=== PATIENT | female | born 1945 | race Caucasian/White ===

== ENCOUNTER 2020-04-08 09:37 | Observation (INO) ==
[2020-04-08] MEDS ORDERED: KETOROLAC TROMETHAMINE 15 MG/ML VIAL IV ONE (10:04)
[2020-04-08] MEDS ORDERED: SODIUM CHLORIDE 0.9% 1000ML 1,000 ML IV ONE (10:04)
--- NOTE | 2020-04-08 10:08 | Emergency Department Note ---
Impression & Plan Hydronephrosis, Renal colic on right side ED Provider Note NAME: LISA NEGRON AGE: 76 SEX: F : 04/29/1943 ARRIVES VIA: Walk-In INFORMANT: Patient, ED PROVIDER(S): Phillip Bautista DO CHIEF COMPLAINT: Right flank HPI: Patient is a 76-year-old female who presents to the ER for right flank pain. This has been present for the past several months. She notes that recently over the past week it has been worsening. She saw urology in [place] after presenting to the ER and was found to have a 7 mm stone in early March. Lithotripsy was performed but unsuccessful. She was set to follow back up with Dr. Palomino but has since followed up and scheduled appointment with Dr. Mahmood. She admits to nausea but no vomiting. No dysuria urgency or frequency. No fevers. She is been taking Toradol with minimal improvement. Notes pain is currently an 8 out of 10. ROS: See above HPI for pertinent positives & negatives. A total of 10 systems reviewed and were otherwise negative. PAST MEDICAL HISTORY:See Below PAST SURGICAL HISTORY:See Below FAMILY HISTORY:See Below SOCIAL HISTORY:See Below HOME MEDICATIONS:See Below ALLERGIES:See Below VITALS:See Below PHYSICAL EXAMINATION: GENERAL: Sitting up in bed, alert, well appearing, well nourished, no distress, non-toxic EYE EXAM: normal conjunctiva. OROPHARYNX: no exudate, no erythema, lips, buccal mucosa, and tongue normal and mucous membranes are moist NECK: supple, no nuchal rigidity, no adenopathy, non-tender LUNGS: Clear to auscultation. Normal chest wall mechanics HEART: no murmurs, S1 normal and S2 normal ABDOMEN: abdomen soft, non-tender, normo-active bowel sounds, no masses, no rebound or guarding. BACK: Back is symmetrical on inspection and there is no deformity, no midline tenderness, no CVA tenderness. SKIN: no rashes and no bruising UPPER EXTREMITIES: upper extremities are grossly normal. LOWER EXTREMITIES: No pitting edema. NEURO EXAM: Normal sensorium, cranial nerves II-XII grossly intact, normal speech, no gross weakness of arms, no gross weakness of legs. MEDICAL DECISION MAKING: Patient is a 74-year-old female who presents the ER for right flank pain. IV was established blood work is obtained. Labs show no significant leukocytosis or anemia. BMP with LFTs bilirubin and lipase is unremarkable. UA with hematuria. No signs of infection. CT abdomen pelvis confirms 3 stones in the right mid ureter with hydronephrosis. She is given a dose of Toradol and was fairly comfortable. With the multiple stones I discussed with urology. They recommended admission and observation and possibly going to the OR. Patient was updated bedside and was comfortable. Discussed with Ally from urology and Dr. Gonzales Barrera from admitting hospitalist. Triage Nursing notes reviewed. Prior medical records reviewed Vital Signs: reviewed and remarkable for HTN Differential diagnosis: Differential diagnoses includes but is not limited to gastritis, peptic ulcer disease, GERD, gallbladder disease, pancreatitis, small bowel obstruction, acute coronary syndrome, pericarditis, ischemic bowel, irritable bowel disease, irritable bowel syndrome, appendicitis, diverticulitis, malignancy, hernia, urinary tract infection, torsion, [/ectopic (if female)], perforation, trauma, infectious. ER treatment provided: See below Diagnostics interpreted by me: ECG: none Cardiac Monitoring: An order was placed for continuous cardiac monitoring. The monitor shows a rate of 80 with sinus rhythm. Laboratory studies: As stated above and show below. Imaging studies: CT abdomen pelvis shows 4 stones in the right ureter with hydronephrosis Consultation(s): Discussed with Tita from urology who recommended admission and they will further evaluate the patient Discussed with Dr. Gonzales Barrera who will evaluate the patient for further work-up ED COURSE: Procedures: none Critical Care: None Past Med/Surg History Medical History Hyperlipidemia Hypertension Type 2 diabetes mellitus Vitamin D deficiency Social History Smoking Status: Never smoker Hx Alcohol Use: Yes Alcohol type: beer Hx Substance Use: No Preferred Language: Yemeni Communication Ability: Effective Beliefs That Will Affect Care: Bahai Bahai Beliefs: oriental orthodox Current Living Situation: Spouse Other Information That Helps Us Care for You: No Feels Safe at Home: Yes Safety Concerns: Feels Safe At This Time Allergies Allergies Allergy/AdvReac Type Severity Reaction Status Date / Time No Known Allergies Allergy Unverified 04/08/20 11:55 Home Meds Home Medications Medication Instructions Recorded Confirmed albuterol sulfate [Ventolin HFA] 2 puff INHALATION Q6H PRN 04/08/20 04/08/20 atorvastatin [Lipitor] 20 mg PO [id number]/08/20 04/08/20 cholecalciferol (vitamin D3) 125 mcg PO HS 04/08/20 04/08/20 [Vitamin D3] losartan [Cozaar] 100 mg PO [id number]/08/20 04/08/20 metformin 1,000 mg PO BID 04/08/20 04/08/20 potassium chloride 20 meq PO 04/08/20 04/08/20 Results & Data (ED) Vital Signs Vital Signs - 24 hr 04/08/20 09:46 04/08/20 10:45 04/08/20 11:41 Temperature 37.0 C Temperature Source Oral Pulse Rate 76 70 Pulse Rate [Left] 67 Pulse Rhythm Regular Pulse Strength Normal Respiratory Rate 20 16 Respiratory Effort / Characteristics Non-Labored Non-Labored Spontaneous Respiratory Depth Normal Normal Respiratory Pattern Regular Blood Pressure 165/84 H Blood Pressure [Left Arm] 142/69 H Blood Pressure Mean 111 Blood Pressure Mean [Left Arm] 93 Blood Pressure Position Sitting Blood Pressure Position [Left Arm] Lying Pulse Oximetry 96 95 97 Oxygen Delivery Method Room Air Room Air Room Air Sepsis Recent Fever Within 48 Hours No Sepsis New/Unexplained Change in Mental Status No Sepsis Action Taken by Nursing No Action Required 04/08/20 12:22 04/08/20 12:32 Temperature Temperature Source Pulse Rate Pulse Rate [Left] 68 68 Pulse Rhythm Pulse Strength Respiratory Rate 16 18 Respiratory Effort / Characteristics Non-Labored Spontaneous Respiratory Depth Normal Respiratory Pattern Blood Pressure Blood Pressure [Left Arm] 140/69 Blood Pressure Mean Blood Pressure Mean [Left Arm] 92 Blood Pressure Position Blood Pressure Position [Left Arm] Lying Pulse Oximetry 98 98 Oxygen Delivery Method Room Air Room Air Sepsis Recent Fever Within 48 Hours Sepsis New/Unexplained Change in Mental Status Sepsis Action Taken by Nursing Laboratory Data Result diagrams: 04/08/20 10:19 04/08/20 10:19 Lab Results 04/08/20 04/08/20 04/08/20 Range/Units 10:19 10:19 11:20 WBC 9.73 (4.8-10.8) K/uL RBC 4.59 (4.2-5.4) M/uL Hgb 13.4 (12.0-16.0) g/dL Hct 40.3 (37-47) % MCV 87.8 (80-100) fL MCH 29.2 (25-34) pg MCHC 33.3 (32-36) g/dL RDW Std Deviation 41.0 (36.4-46.3) fL RDW Coeff of Kev 12.8 (11.5-14.5) % Plt Count 342 (130-400) K/uL MPV 8.8 (7.4-10.4) fL Immature Gran % (Auto) 0.1 % Neut % (Auto) 69.6 % Lymph % (Auto) 20.8 % [place] % (Auto) 7.7 % Eos % (Auto) 1.6 % Baso % (Auto) 0.2 % Neut # (Auto) 6.77 H (1.4-6.5) K/uL Lymph # (Auto) 2.02 (1.2-3.4) K/uL [place] # (Auto) 0.75 H (0.11-0.59) K/uL Eos # (Auto) 0.16 (0-0.5) K/uL Baso # (Auto) 0.02 (0-0.2) K/uL Immature Gran # (Auto) 0.01 (0.00-0.02) K/uL Sodium 141 (136-145) mmol/L Potassium 4.1 (3.5-5.1) mmol/L Chloride 106 (98-107) mmol/L Carbon Dioxide 26 (21-32) mmol/L Anion Gap 8.0 (3-11) BUN 12 (7-18) mg/dl Creatinine 1.06 (0.6-1.2) mg/dl Est Cr Clr Drug Dosing 43.0 ml/min Est GFR ( Amer) 60.8 Est GFR (Non-Af Amer) 52.4 BUN/Creatinine Ratio 11.2 (10-20) Glucose 123 H (70-99) mg/dl Calcium 9.4 (8.5-10.1) mg/dl Total Bilirubin 0.5 (0.2-1) mg/dl AST 14 L (15-37) U/L ALT 19 (12-78) U/L Alkaline Phosphatase 89 (45-117) U/L Total Protein 7.0 (6.4-8.2) gm/dl Albumin 3.7 (3.4-5.0) gm/dl Globulin 3.3 (2.5-4.0) gm/dl Albumin/Globulin Ratio 1.1 (0.9-2) Lipase 131 (73-393) U/L Urine Color Yellow Urine Appearance Clear (Clear) Urine pH 5.0 (4.5-7.5) Ur Specific [place] 1.021 (1.000-1.030) Urine Protein Negative (Negative) Urine Glucose (UA) Negative (Negative) Urine Ketones Negative (Negative) Urine Blood 1+ H (Negative) Urine Nitrite Negative (Negative) Urine Bilirubin Negative (Negative) Urine Urobilinogen Negative (Negative) Ur Leukocyte Esterase Negative (Negative) Urine WBC (Auto) 1-5 (0-5) /hpf Urine RBC (Auto) 5-10 H (0-4) /hpf U Hyaline Cast (Auto) 1-5 (0-5) /lpf U Epithel Cells (Auto) 10-20 H (0-5) /lpf Urine Bacteria (Auto) Negative (Negative) Administered Medications Lactated Ringer's (Lr) 1,000 mls @ 150 mls/hr IV .Q6H40M SHERRIE Stop: 05/08/20 14:30 Last Admin: 04/08/20 14:40 Dose: 150 mls/hr Documented by: [id number] Discontinued Medications Sodium Chloride (Nss 1000ml) 1,000 mls @ 999 mls/hr IV .Q1H1M ONE Stop: 04/08/20 11:04 Last Infusion: 04/08/20 11:24 Dose: 0 mls/hr Documented by: [id number] Admin: 04/08/20 10:22 Dose: 999 mls/hr Documented by: [id number] Ketorolac Tromethamine (Ketorolac Tromethamine 15 Mg/Ml Vial) 15 mg IV NOW ONE Stop: 04/08/20 10:05 Last Admin: 04/08/20 10:23 Dose: 15 mg Documented by: [id number] Ondansetron HCl (Ondansetron Inj 2 Mg/Ml 2 Ml Vial) 4 mg IV NOW STA Stop: 04/08/20 10:26 Last Admin: 04/08/20 10:33 Dose: 4 mg Documented by: [id number] Discharge Plan Visit Data Chief Complaint: Kidney Stone Stated Complaint: KIDNEY STONE DOC REG ED Provider: Phillip Bautista Discharge Problem: Hydronephrosis, Renal colic on right side Patient Disposition: Admitted As Inpatient Discharge Instructions Interventions: ED Discharge Assessment Last Done: 04/08/20 13:56 Discharge Problem: Hydronephrosis Qualifiers: Hydronephrosis type: unspecified Qualified Code(s): N13.30 - Unspecified hydronephrosis
[2020-04-08] MEDS ORDERED: ONDANSETRON INJ 2 MG/ML 2 ML VIAL IV STA (10:25)
[2020-04-08 10:33] LABS: Basophils # (auto) 0.02 K/uL (0-0.2); Basophils % (auto) 0.2 %; Eosinophils # (auto) 0.16 K/uL (0-0.5); Eosinophils % (auto) 1.6 %; Hematocrit (blood only) 40.3 % (37-47); Hemoglobin 13.4 g/dL (12.0-16.0); Immature Granulocytes # (auto) 0.01 K/uL (0.00-0.02); Immature Granulocytes % (auto) 0.1 %; Lymphocytes # (auto) 2.02 K/uL (1.2-3.4); Lymphocytes % (auto) 20.8 %; Mean Corpuscular Hemoglobin 29.2 pg (25-34); Mean Corpuscular Hgb Conc 33.3 g/dL (32-36); Mean Corpuscular Volume 87.8 fL (80-100); Mean Platelet Volume 8.8 fL (7.4-10.4); Monocytes # (auto) 0.75 K/uL (0.11-0.59); Monocytes % (auto) 7.7 %; Neutrophils # (auto) 6.77 K/uL (1.4-6.5); Neutrophils % (auto) 69.6 %; Platelet Count 342 K/uL (130-400); RDW Coefficient of Variation 12.8 % (11.5-14.5); Red Blood Count 4.59 M/uL (4.2-5.4); White Blood Count 9.73 K/uL (4.8-10.8)
[2020-04-08 10:52] LABS: Albumin Level 3.7 gm/dl (3.4-5.0); BUN Creatinine Ratio 11.2 (10-20); Calcium 9.4 mg/dl (8.5-10.1); Est GFR (African American) 60.8; Est GFR (Non-African American) 52.4; Potassium 4.1 mmol/L (3.5-5.1)
[2020-04-08 10:58] LABS: Albumin Globulin Ratio 1.1 (0.9-2); Bilirubin,Total 0.5 mg/dl (0.2-1); Globulin 3.3 gm/dl (2.5-4.0)
--- NOTE | 2020-04-08 11:25 | CT Scan Report ---
ABDOMEN AND PELVIS CT WITHOUT CONTRAST CT DOSE: 671.00 mGy.cm HISTORY: r flank pain TECHNIQUE: Multiaxial CT images of the abdomen and pelvis were performed without contrast. A dose lo wering technique was utilized adhering to the principles of ALARA. COMPARISON STUDY: None. FINDINGS: A punctate calcified granuloma within the left lung base. Small bibasilar linear densities consistent with subsegmental atelectasis. No pneumoperitoneum. No pneumatosis. No fractures within th e visualized osseous structures. Cholecystectomy. The unenhanced liver, spleen, adrenal glands, and p ancreas are within normal limits. No retroperitoneal lymphadenopathy. Moderate calcified plaque withi n the normal caliber abdominal aorta. The bladder, uterus, bilateral adnexa are within normal limits. Suboptimal evaluation for bowel pathology due to the lack of intravenous and oral contrast. However, there is no definite bowel wall thickening or obstruction. Normal appendix. There are few punctate l eft renal calculi. No definite right renal calculi. Moderate right hydroureteronephrosis secondary to multiple obstructing stones within the mid right ureter. There are total of 4 adjacent stones measur ing a total length of 2.4 cm at the mid right ureter. Dominant stone measures 6 mm. IMPRESSION: 1. There are 4 adjacent obstructing stones within the mid right ureter resulting in moderate right hy droureteronephrosis. 2. Left-sided nephrolithiasis. 3. Colonic diverticulosis. No evidence for diverticulitis. 4. No definite bowel wall thickening or obstruction. ACT 112: Negative or not required by law. Electronically signed by: Larry Gramajo M.D. 04/08/2020 11:24 AM
[2020-04-08 11:32] LABS: Appearance Urine Clear (Clear); Bacteria Urine Automated Negative (Negative); Bilirubin Urine Negative (Negative); Blood Urine 1+ (Negative); Color Urine Yellow; Glucose Urine UA Negative (Negative); Ketones Urine Negative (Negative); Leukocyte Esterase Urine Negative (Negative); Nitrite Urine Negative (Negative); Protein Urine Negative (Negative); Specific Gravity Urine 1.021 (1.000-1.030); Urobilinogen Urine Negative (Negative)
--- NOTE | 2020-04-08 13:06 | History & Physical Report ---
Date of Service April 08, 2020 Assessment & Plan (1) Ureterolithiasis: Strain all urine Tamsulosin 0.4 mg at bedtime NPO with IV fluids pending urology consult Consult urology (2) Renal colic on right side: IV Dilaudid 0.5 IV as needed Ondansetron 4 mg q4H IV as needed for nausea or vomiting (3) Hydronephrosis: Consult urology for stent placement +/- stone management (4) Hyperlipidemia: Continue atorvastatin 20 mg p.o. Saturday (5) Hypertension: Monitor blood pressure prior to continuing losartan (6) Type 2 diabetes mellitus: Hold metformin 1 g p.o. twice daily during admission BSG ACHS with insulin for correction only (7) Vitamin D deficiency: Continue vitamin D 3 125 mcg p.o. at bedtime Admission and Anticipated Discharge Date Admission Date: 04/08/2020 History of Present Illness Chief Complaint: Renal colic pain Primary Care Provider: Emily Echevarria Charmaine Arboleda is a 74-year-old female who presents to the ER with renal colic pain on the right side. Her current issues started back on March 12 [facility] emergency room when she was diagnosed with a 7x5 mm stone in the distal right UPJ causing mild/moderate hydronephrosis proximally. She was reportedly discharged from the ER at that time. Followed up with urology (Dr Palomino) on March 15 for procedure on March 18. The patient reports planned stent and lithotripsy at that time however lithotripsy was unsuccessful and no stent was placed. She has been having problems contacting her urologist after this procedure and was unsure of the follow-up plan for this. Therefore she called in [facility] urology to arrange follow-up with a planned appointment on April 15 (not able to get an earlier appointment than this). Since the lithotripsy she has had mild intermittent small amounts of right flank pain. However 2 days ago at night this became much more severe. 10/10 at worst. She had 1 Toradol leftover which helped for a couple of hours. Eased up the following day but continued throbbing. Continue to get worse today and on advice of her decided to come to the emergency room. Severity 8/10 on arrival in emergency room now significantly eased with Toradol given. In the ER she underwent CT abdomen pelvis without contrast which showed 4 adjacent obstructing stones within the mid right ureter resulting in moderate right hydro-ureteronephrosis. Allergies Allergy/AdvReac Type Severity Reaction Status Date / Time No Known Allergies Allergy Unverified 04/08/20 11:55 Home Medications Home Medications Medication Instructions Recorded Confirmed Type albuterol sulfate [Ventolin HFA] 2 puff INHALATION Q6H PRN 04/08/20 04/08/20 History atorvastatin [Lipitor] 20 mg PO [id number]@209904/08/20 04/08/20 History cholecalciferol (vitamin D3) 125 mcg PO HS 04/08/20 04/08/20 History [Vitamin D3] losartan [Cozaar] 100 mg PO [id number]/08/20 04/08/20 History metformin 1,000 mg PO BID 04/08/20 04/08/20 History potassium chloride 20 meq PO HS 04/08/20 04/08/20 History ketorolac 10 mg PO Q8H PRN 5 Days #30 tab 04/09/20 Rx tamsulosin 0.4 mg PO HS #30 cap 04/09/20 Rx Past Med/Surg History Medical History (Updated 04/10/20 @ 00:03 by Robbie Chavez) Asthma Hyperlipidemia Hypertension Type 2 diabetes mellitus Vitamin D deficiency Surgical History (Updated 04/08/20 @ 19:55 by Jadiel Mahmood MD) H/O lithotripsy Family History (Updated 04/08/20 @ 19:55 by Jadiel Mahmood MD) Other Coronary heart disease Social History Smoking Status: Never smoker Hx Alcohol Use: Yes Alcohol type: beer Hx Substance Use: No Preferred Language: Lithuanian Communication Ability: Effective Beliefs That Will Affect Care: Scientologist Scientologist Beliefs: denominational Current Living Situation: Spouse Feels Safe at Home: Yes Review of Systems Review of Systems: All systems reviewed & are unremarkable except as noted in HPI & below Physical Exam Constitutional: WD/WN, vitals as above + obese Eyes: + anicteric sclerae; normal pupil size Respiratory: normal respiratory effort, lungs clear to auscultation Cardiovascular: RRR, no murmur, no edema Gastrointestinal (Abdomen): normal bowel sounds, soft, nontender, no hepatosplenomegaly Musculoskeletal: no cyanosis or clubbing, extremities motor strength 5/5 Skin: no rashes, warm and dry Neurologic: moves all extremities and awake; not confused Psychiatric: A+Ox3, euthymic affect Genitourinary: + CVA tenderness (right) Results & Data Results & Data ([facility]) Vital Signs (Past 12 Hours) Vital Signs Temp Pulse Pulse Resp BP BP Pulse Ox 04/08/20 12:32 68 18 140/69 98 04/08/20 12:22 68 16 98 04/08/20 11:41 67 16 142/69 H 97 04/08/20 10:45 70 95 04/08/20 09:46 37.0 C 76 20 165/84 H 96 Diagnostic Findings ABDOMEN AND PELVIS CT WITHOUT CONTRAST IMPRESSION: 1. There are 4 adjacent obstructing stones within the mid right ureter resulting in moderate right hydroureteronephrosis. 2. Left-sided nephrolithiasis. 3. Colonic diverticulosis. No evidence for diverticulitis. 4. No definite bowel wall thickening or obstruction. Code Status & VTE Plan Code Status Full VTE Prophylaxis Plan VTE Prophylaxis will be ordered: Yes Reason for no VTE drug order: Treatment not indicated PG Care Time/CCT Total # of Minutes Spent Total Time Spent with Patient: Total time spent is greater than 50% in coordination of care (as documented) at patient's floor/unit and/or counseling patient: Coding Level of Care Code 30695 OBS Care - Level 2 Diagnoses Ureterolithiasis N20.1 Renal colic on right side N23 Hydronephrosis N13.30 Hyperlipidemia E78.5 Hypertension I10 Type 2 diabetes mellitus E11.9 Vitamin D deficiency E55.9
[2020-04-08] MEDS ORDERED: DEXTROSE 50% 50 ML SYRINGE IV PRN (14:31)
[2020-04-08] MEDS ORDERED: GLUCOSE 40% GEL 15 GM TUBE PO PRN (14:31)
[2020-04-08] MEDS ORDERED: ACETAMINOPHEN 325 MG TAB PO PRN (14:31)
[2020-04-08] MEDS ORDERED: GLUCAGON FOR INJ 1 MG VIAL SQ PRN (14:31)
[2020-04-08] MEDS ORDERED: HYDROmorphone INJ 0.5 MG/0.5 ML SYR IV PRN (14:31)
[2020-04-08] MEDS ORDERED: CARBOHYDRATES FOR HYPOGLYCEMIA PO PRN (14:31)
[2020-04-08] MEDS ORDERED: ONDANSETRON INJ 2 MG/ML 2 ML VIAL IV PRN (14:31)
[2020-04-08] MEDS ORDERED: GLUCOSE 10 TABS/TUBE PO PRN (14:31)
[2020-04-08] MEDS: LACTATED RINGER'S 1,000 ML IV SCH ×2 (14:40→21:20)
[2020-04-08] MEDS ORDERED: Nursing to Pharmacy Communication SCH ×2 (15:00→16:00)
[2020-04-08] MEDS ORDERED: INSULIN ASPART 100 UNITS/ML 3 ML PEN SC SCH ×2 (16:30→18:00)
--- NOTE | 2020-04-08 16:30 | Anesthesiology Consultation ---
Date of Service April 08, 2020 Assessment & Plan (1) Encounter for pre-operative examination: (2) Asthma: History Surgery Operation Date: 04/09/20 08:15 Proposed Procedures p Cystoscopy, Right Ureteral Stent Placement - Jadiel Mahmood MD Height/Weight Height: 5 ft Weight: 73.8 kg Allergies Allergy/AdvReac Type Severity Reaction Status Date / Time No Known Allergies Allergy Unverified 04/08/20 11:55 Medications Home Medications Medication Instructions Recorded Confirmed Last Taken albuterol sulfate [Ventolin HFA] 2 puff INHALATION Q6H PRN 04/08/20 04/08/20 Unknown atorvastatin [Lipitor] 20 mg PO MOWEFR@209904/08/20 04/08/20 04/06/20 cholecalciferol (vitamin D3) 125 mcg PO HS 04/08/20 04/08/20 04/07/20 [Vitamin D3] losartan [Cozaar] 100 mg PO MOWEFR@209904/08/20 04/08/20 04/06/20 metformin 1,000 mg PO BID 04/08/20 04/08/20 04/07/20 potassium chloride 20 meq PO 04/08/20 04/08/20 04/07/20 Active Medications Generic Name Dose Route Start Last Admin Trade Name Freq PRN Reason Stop Dose Admin Acetaminophen 650 mg 04/08/20 14:31 04/09/20 03:33 Acetaminophen 325 Mg Tab PO 05/08/20 14:30 650 mg Q4H PRN Administration Pain or Fever Atorvastatin Calcium 20 mg 04/08/20 21:00 04/08/20 21:18 Atorvastatin 20 Mg Tab PO 05/08/20 20:59 Not Given [id number] [facility] Lactated Ringer's 1,000 mls @ 150 mls/hr 04/08/20 14:31 04/09/20 03:28 Lr IV 05/08/20 14:30 150 mls/hr .Q6H40M SHERRIE Administration Insulin Aspart 0 units 04/09/20 06:00 04/09/20 06:08 Insulin Aspart 100 Units/Ml 3 Ml Pen SC 05/09/20 05:59 Not Given Q6 SHERRIE Ketorolac Tromethamine 15 mg 04/08/20 15:57 04/08/20 19:59 Ketorolac Tromethamine 15 Mg/Ml Vial IV 04/13/20 15:56 15 mg Q6H PRN Administration Pain Potassium Chloride 20 meq 04/08/20 21:00 04/08/20 21:18 Potassium Chloride 20 Meq Tabcr PO 05/08/20 20:59 Not Given HS SHERRIE Vitamin D 5,000 units 04/08/20 21:00 04/08/20 21:18 Cholecalciferol 1,000 Units 25 Mcg Tab PO 05/08/20 20:59 Not Given HS SHERRIE Past Medical History Medical History (Updated 04/09/20 @ 08:21 by Ellie Keller MD) Asthma Hyperlipidemia Hypertension Type 2 diabetes mellitus Vitamin D deficiency Past Family History Family History (Updated 04/08/20 @ 19:55 by Jadiel Mahmood MD) Other Coronary heart disease Past Surgical History Surgical History (Updated 04/08/20 @ 19:55 by Jadiel Mahmood MD) H/O lithotripsy Social History Smoking Status: Never smoker Hx Alcohol Use: Yes Alcohol type: beer alcohol intake frequency: other Alcohol Intake Frequency Comment: "2 beers a year" Hx Substance Use: No substance use type: does not use Physical Exam Vital Signs Last Vital Signs Temp 36.7 C 04/09/20 07:32 Pulse 51 L 04/09/20 07:32 Resp 18 04/09/20 07:32 BP 120/72 04/09/20 07:32 Pulse Ox 97 04/09/20 07:32 Testing Laboratory Results 04/08/20 10:19 Urine Color Yellow 04/08/20 11:20 Urine Appearance Clear (Clear) 04/08/20 11:20 Urine pH 5.0 (4.5-7.5) 04/08/20 11:20 Ur Specific [place] 1.021 (1.000-1.030) 04/08/20 11:20 Urine Protein Negative (Negative) 04/08/20 11:20 Urine Glucose (UA) Negative (Negative) 04/08/20 11:20 Urine Ketones Negative (Negative) 04/08/20 11:20 Urine Nitrite Negative (Negative) 04/08/20 11:20 Ur Leukocyte Esterase Negative (Negative) 04/08/20 11:20 Urine WBC (Auto) 1-5 /hpf (0-5) 04/08/20 11:20 Urine RBC (Auto) 5-10 /hpf (0-4) H 04/08/20 11:20 U Hyaline Cast (Auto) 1-5 /lpf (0-5) 04/08/20 11:20 U Epithel Cells (Auto) 10-20 /lpf (0-5) H 04/08/20 11:20 Urine Bacteria (Auto) Negative (Negative) 04/08/20 11:20 04/09/20 04/08/20 06:00 20:47 POC Glucose 131 H 139 H
[2020-04-08] MEDS: INSULIN ASPART 100 UNITS/ML 3 ML PEN SC SCH ×2 (18:21→21:29)
--- NOTE | 2020-04-08 19:56 | Urology Consultation ---
Date of Consultation April 08, 2020 Assessment & Plan (1) Hydronephrosis: (2) Ureterolithiasis: Right ureteral calculi with obstruction and symptoms Discussed options I recommended a cystoscopy, right ureteral stent placement tomorrow We will cover with Cipro the time of surgery Consent is on the chart The patient was marked and agreeable with moving forward with the procedure N.p.o. after midnight History of Present Illness Attending Physician: Gonzales Barrera MD History of Present Illness 74-year-old female with a history of kidney stones who recently underwent surgery with another urologist[facility] Unfortunately, she had no relief of her pain and pain has been progressively increasing since that time She tried to contact that urologist on multiple occasions but was unsuccessful This ultimately led to an emergency room visit today secondary to severe pain and nausea CT upon arrival shows a series of stones along the right ureter with hydronephro sis and stranding She remains symptomatic this evening Afebrile, vital signs stable Family history of stones Prior history of ESWL, never a stent Allergies Allergy/AdvReac Type Severity Reaction Status Date / Time No Known Allergies Allergy Unverified 04/08/20 11:55 Home Medications Home Medications Medication Instructions Recorded Confirmed Type albuterol sulfate [Ventolin HFA] 2 puff INHALATION Q6H PRN 04/08/20 04/08/20 History atorvastatin [Lipitor] 20 mg PO [id number]/08/20 04/08/20 History cholecalciferol (vitamin D3) 125 mcg PO HS 04/08/20 04/08/20 History [Vitamin D3] losartan [Cozaar] 100 mg PO [id number]/08/20 04/08/20 History metformin 1,000 mg PO BID 04/08/20 04/08/20 History potassium chloride 20 meq PO HS 04/08/20 04/08/20 History Patient History Medical History (Updated 04/08/20 @ 16:30 by Ellie Keller MD) Hyperlipidemia Hypertension Type 2 diabetes mellitus Vitamin D deficiency Surgical History (Updated 04/08/20 @ 19:55 by Jadiel Mahmood MD) H/O lithotripsy Family History (Updated 04/08/20 @ 19:55 by Jadiel Mahmood MD) Other Coronary heart disease Social History Smoking Status: Never smoker Hx Alcohol Use: Yes Alcohol type: beer Hx Substance Use: No Preferred Language: Luxembourgish Communication Ability: Effective Beliefs That Will Affect Care: Nondenominational Nondenominational Beliefs: taoist Current Living Situation: Spouse Other Information That Helps Us Care for You: No Feels Safe at Home: Yes Safety Concerns: Feels Safe At This Time Review of Systems Constitutional: no fever, no chills and no fatigue Eyes: no worsening vision Ear, Nose, Mouth, Throat: no facial pain and no pain with swallowing Respiratory: no cough and no dyspnea Cardiovascular: no chest pain and no palpitations Gastrointestinal: no abdominal pain, no nausea and no vomiting Genitourinary: no dysuria, no difficulty urinating, no urinary frequency and no hematuria Musculoskeletal: no back pain Integumentary: no rash and no urticaria Neurologic: no gait abnormality and no unsteadiness Psychiatric: no behavioral changes and no depression Endocrine: no fatigue Physical Exam Constitutional: well developed and well nourished Neck: neck nontender Respiratory: normal respiratory effort; no respiratory distress and does not use accessory muscles Cardiovascular: Rate/Rhythm: regular rate Vessels: radial pulses present Extremities: no edema Gastrointestinal (Abdomen): Inspection/Auscultation: abdomen normal to inspection Percussion/Palpation: abdomen soft; abdomen nontender and no guarding Musculoskeletal: Head/Neck/Chest: normocephalic and head atraumatic E xtremities: extremities normal to inspection Skin: no rashes and no lesions Trauma: no evidence of skin trauma Neurologic: awake; not obtunded Speech / Cognition: normal speech Motor/Sensory: no tremor Psychiatric: Orientation: alert and oriented x 3 Lymphatic: no lymphadenopathy Results & Data ([facility]) Vital Signs (Past 12 Hours) Vital Signs Temp Pulse Pulse Resp BP BP Pulse Ox 04/08/20 15:42 36.6 C 90 18 130/68 95 04/08/20 13:56 63 18 170/81 H 99 04/08/20 12:32 68 18 140/69 98 04/08/20 12:22 68 16 98 04/08/20 11:41 67 16 142/69 H 97 04/08/20 10:45 70 95 04/08/20 09:46 37.0 C 76 20 165/84 H 96 PG Care Time/CCT Total # of Minutes Spent Total Time Spent with Patient: Total time spent is greater than 50% in coordination of care (as documented) at patient's floor/unit and/or counseling patient: Coding Level of Care Code 55954 Inpt Consult Level 4 Diagnoses Hydronephrosis N13.30 Hydronephrosis type: unspecified Ureterolithiasis N20.1 (1) Hydronephrosis Hydronephrosis type: unspecified Qualified Code(s): N13.30 - Unspecified hydronephrosis
[2020-04-08] MEDS: KETOROLAC TROMETHAMINE 15 MG/ML VIAL IV PRN (19:59)
[2020-04-08] MEDS ORDERED: POTASSIUM CHLORIDE 20 MEQ TABCR PO SCH (21:00)
[2020-04-08] MEDS ORDERED: ATORVASTATIN 20 MG TAB PO SCH (21:00)
[2020-04-08] MEDS ORDERED: CHOLECALCIFEROL 1,000 UNITS 25 MCG TAB PO SCH (21:00)
[2020-04-09] MEDS: LACTATED RINGER'S 1,000 ML IV SCH ×2 (03:28→12:39)
[2020-04-09] MEDS ORDERED: Nursing to Pharmacy Communication SCH (03:30)
[2020-04-09] MEDS ORDERED: CIPROFLOXACIN / D5W 400 MG/200 ML BAG IV SCH (06:00)
[2020-04-09] MEDS: INSULIN ASPART 100 UNITS/ML 3 ML PEN SC SCH ×2 (06:08→12:42)
--- NOTE | 2020-04-09 07:33 | Urology Progress Note ---
Date of Service April 09, 2020 Assessment & Plan (1) Ureterolithiasis: Plan for intervention today with cystoscopy, right ureteral stent placement Cipro perioperative Hope to be able to discharge her home after the procedure presuming she tolerates the stent well (2) Hydronephrosis: Admission and Anticipated Discharge Date Admission Date: April 08, 2020 Subjective No change overnight Tolerating her discomfort but still remains symptomatic from her right ureteral stones Review of Systems Review of Systems: All systems reviewed & are unremarkable except as noted in HPI & below Physical Exam Constitutional: well developed and well nourished Neck: neck nontender Respiratory: normal respiratory effort; no respiratory distress and does not use accessory muscles Cardiovascular: Rate/Rhythm: regular rate Vessels: radial pulses present Extremities: no edema Gastrointestinal (Abdomen): Inspection/Auscultation: abdomen normal to inspection Percussion/Palpation: abdomen soft; abdomen nontender and no guarding Musculoskeletal: Head/Neck/Chest: normocephalic and head atraumatic Extremities: extremities normal to inspection Skin: no rashes and no lesions Trauma: no evidence of skin trauma Neurologic: awake; not obtunded Speech / Cognition: normal speech Motor/Sensory: no tremor Psychiatric: Orientation: alert and oriented x 3 Lymphatic: no lymphadenopathy Results & Data ([facility]) Vital Signs (Past 12 Hours) Vital Signs Temp Pulse Resp BP Pulse Ox 04/09/20 06:11 36.5 C 56 L 16 120/68 96 04/08/20 23:15 36.7 C 67 16 122/81 96 PG Care Time/CCT Total # of Minutes Spent Total Time Spent with Patient: Total time spent is greater than 50% in coordination of care (as documented) at patient's floor/unit and/or counseling patient: Coding Level of Care Code 41403 Subseq Hosp Care Lvl 2 Diagnoses Ureterolithiasis N20.1 Hydronephrosis N13.30 Hydronephrosis type: unspecified (1) Hydronephrosis Hydronephrosis type: unspecified Qualified Code(s): N13.30 - Unspecified hydronephrosis
[2020-04-09] MEDS ORDERED: PROPOFOL IV EMULSION 10 MG/ML 20 ML VIAL IV ONE (08:17)
[2020-04-09] MEDS ORDERED: LIDOCAINE HCL 2% 2 ML VIAL/AMP(20MG/ML) INFIL ONE (08:17)
[2020-04-09] MEDS ORDERED: fentaNYL citrate 100 MCG/2 ML VIAL ONE (08:17)
[2020-04-09] MEDS ORDERED: MIDAZOLAM HCL 1 MG/ML 2ML VIAL ONE (08:18)
[2020-04-09] MEDS ORDERED: ATROPINE SULFATE 0.1 MG/ML 10ML SYR IV PRN (08:26)
[2020-04-09] MEDS ORDERED: HYDROmorphone INJ 1 MG/ML SYRINGE IV PRN (08:26)
[2020-04-09] MEDS ORDERED: fentaNYL citrate 100 MCG/2 ML VIAL IV PRN (08:26)
[2020-04-09] MEDS ORDERED: ONDANSETRON INJ 2 MG/ML 2 ML VIAL IV PRN (08:26)
[2020-04-09] MEDS ORDERED: ePHEDrine sulfate 50 MG/ML AMP IV PRN (08:26)
[2020-04-09 08:27] LABS: Calcium 8.9 mg/dl (8.5-10.1); Creatinine Clr Calc Pharmacy 48.5 ml/min; Est GFR (African American) 70.2; Est GFR (Non-African American) 60.6; Potassium 3.8 mmol/L (3.5-5.1)
--- NOTE | 2020-04-09 09:00 | Fluoroscopy Report ---
FL retrograde includes kub CLINICAL HISTORY: RT STENT PLACEMENT COMPARISON STUDY: Abdomen and pelvis CT 04/08/2020. FLUOROSCOPY TIME: 6 seconds. FINDINGS: 2 fluoroscopic spot images of the abdomen demonstrate placement of a right ureteral stent. Only the proximal portion of the stent is identified and appears in good position. IMPRESSION: Fluoroscopy provided for right ureteral stent placement. ACT 112: Negative or not required by law. Electronically signed by: Larry Gramajo M.D. 04/09/2020 8:59 AM
--- NOTE | 2020-04-09 09:04 | Operative Report ---
PG Post Operative Report Pre & Post Diagnosis Operation Date: 04/09/20 08:15 Pre-Op Diagnosis: URETEROLITHIASIS Post-Op Diagnosis: URETEROLITHIASIS I identified the patient and participated in the time-out.: Yes Procedure Operation Date: 04/09/20 08:15 Actual Procedures p Cystoscopy, Right Ureteral Stent Placement(Right) - Jadiel Mahmood MD Surgeon Luis Alberto Mahmood MD [employer] none Estimated Blood Loss 0 Findings Consistent with Post-Op Diagnosis Specimens none Description of Procedure The patient was identified in the preoperative holding area, appropriate informed consents were reviewed and completed and the patient was transferred to the operative suite. Upon arrival, appropriate antibiotics and anesthesia were administered and the patient was placed in dorsal lithotomy position and prepped and draped in sterile fashion. To begin the case to pass a 22 Bangladeshi cystoscope with 30 degree lens. I nspection revealed a healthy-appearing bladder. Ureteral orifices were in orthotopic position. There was no mucosal disease of the bladder. I cannulated the right ureteral orifice with a 5 Bangladeshi open-ended catheter and sensor wire. The wire advanced to the kidney without difficulty. Fluoroscopic evaluation appears to show an opacity along the level of the mid ureter consistent with the stones seen previously on imaging. Of note, however, she initially had 4 stones on imaging and I only appreciated one residual stone on fluoroscopy today. I then placed a 6 Bangladeshi by 24 cm double-J stent seeing a good curl in the kidney as well as the bladder. The bladder was decompressed and the case was concluded. There were no complications. She was reversed from anesthesia and taken to the recovery room in stable condition. I attest to the content of the Intraoperative Record and any orders documented therein. Any exceptions are noted below.
--- NOTE | 2020-04-09 09:27 | Anesthesiology Progress Note ---
Date of Service April 09, 2020 Anesthesia Post Procedure Vital Signs Vital Signs: Temp Pulse Pulse Pulse Resp BP BP 04/09/20 09:17 36.6 C 55 L 20 135/68 04/09/20 09:07 56 L 18 128/65 04/09/20 08:57 36.6 C 69 20 114/69 04/09/20 07:32 36.7 C 51 L 18 120/72 04/09/20 06:11 36.5 C 56 L 16 120/68 04/08/20 23:15 36.7 C 67 16 122/81 04/08/20 15:42 36.6 C 90 18 130/68 04/08/20 13:56 63 18 170/81 H 04/08/20 12:32 68 18 140/69 04/08/20 12:22 68 16 04/08/20 11:41 67 16 142/69 H 04/08/20 10:45 70 04/08/20 09:46 37.0 C 76 20 165/84 H Pulse Ox 04/09/20 09:17 94 04/09/20 09:07 97 04/09/20 08:57 98 04/09/20 07:32 97 04/09/20 06:11 96 04/08/20 23:15 96 04/08/20 15:42 95 04/08/20 13:56 99 04/08/20 12:32 98 04/08/20 12:22 98 04/08/20 11:41 97 04/08/20 10:45 95 04/08/20 09:46 96 Pain Intensity Abdomen: Pain Intensity: 3 Right Flank: Pain Intensity: 5 Transfer of Care Handoff Completed per policy Notes Mental Status: alert / awake / arousable and participated in evaluation Patient Amnestic to Procedure: Yes Nausea / Vomiting: adequately controlled Pain: adequately controlled Airway Patency, RR, SpO2: stable & adequate BP & HR: stable & adequate Hydration State: stable & adequate Anesthetic Complications: no major complications apparent and Pt Satisfied with anesthetic care
[2020-04-09 09:30] LABS: Estimated Average Glucose 146 mg/dl; Hemoglobin A1C 6.7 % (4.5-5.6)
[2020-04-09] MEDS: KETOROLAC TROMETHAMINE 15 MG/ML VIAL IV PRN (09:56)
--- NOTE | 2020-04-09 13:29 | Discharge Summary ---
Date of Service April 09, 2020 Admission HPI Per Admitting Provider Charmaine Arboleda is a 74-year-old female who presents to the ER with renal colic pain on the right side. Her current issues started back on March 12 [facility] emergency room when she was diagnosed with a 7x5 mm stone in the distal right UPJ causing mild/moderate hydronephrosis proximally. She was reportedly discharged from the ER at that time. Followed up with urology (Dr Palomino) on March 15 for procedure on March 18. The patient reports planned stent and lithotripsy at that time however lithotripsy was unsuccessful and no stent was placed. She has been having problems contacting her urologist after this procedure and was unsure of the follow-up plan for this. Therefore she called in [facility] urology to arrange follow-up with a planned appointment on April 15 (not able to get an earlier appointment than this). Since the lithotripsy she has had mild intermittent small amounts of right flank pain. However 2 days ago at night this became much more severe. 10/10 at worst. She had 1 Toradol leftover which helped for a couple of hours. Eased up the following day but continued throbbing. Continue to get worse today and on advice of her decided to come to the emergency room. Severity 8/10 on arrival in emergency room now significantly eased with Toradol given. In the ER she underwent CT abdomen pelvis without contrast which showed 4 adjacent obstructing stones within the mid right ureter resulting in moderate right hydro-ureteronephrosis. Principal Diagnosis Pt is doing well post-procedure. She tolerated lunch. She is a bit sore, but pain is much better. She would like to go home. Pt denies fever, SOB, chest pain, abd pain, n/v/c/d, LE pain or swelling. Discharge Exam Constitutional WD/WN, vitals as above Eyes normal visual godinez by confrontation and + anicteric sclerae Neck normal visual inspection and trachea midline Respiratory normal respiratory effort, lungs clear to auscultation Cardiovascular Rate/Rhythm: regular rate and regular rhythm Gastrointestinal (Abdomen) Inspection/Auscultation: abdomen not distended Percussion/Palpation: abdomen soft; abdomen nontender Musculoskeletal Head/Neck/Chest: normocephalic and head atraumatic Skin no rashes, warm and dry Neurologic awake; not confused Speech / Cognition: normal speech Psychiatric A+Ox3, euthymic affect Discharge Data Allergies Allergy/AdvReac Type Severity Reaction Status Date / Time No Known Allergies Allergy Unverified 04/08/20 11:55 Consultations 04/08/20 12:34 ED Decision to Admit Stat 04/08/20 13:22 Consult Urology Routine 04/08/20 13:25 Consult Health Information Management Stat Procedures Performed Operation Date: 04/09/20 08:15 Actual Procedures p Cystoscopy, Right Ureteral Stent Placement(Right) - Jadiel Mahmood MD Ordered Studies 04/08/20 10:04 CT abd pelvis wo con Stat 04/09/20 FL retrograde includes kub Routine Hospital Course (1) Ureterolithiasis: s/p stent on 04/09 and much improved Tamsulosin 0.4 mg at bedtime f/u with urology, TBD by their office for stent removal ketoralac PRN (2) Renal colic on right side: as above (3) Hydronephrosis: as above (4) Hyperlipidemia: Continue atorvastatin 20 mg p.o. Saturday (5) Hypertension: continue home meds (6) Type 2 diabetes mellitus: resume home meds BSG ACHS with insulin for correction only (7) Vitamin D deficiency: Continue vitamin D 3 125 mcg p.o. at bedtime Total Time Total Time Spent Total Time Spent (In Minutes): >30 Total Time Includes: Examination of the Patient, Discharge Planning, Medication Reconciliation, Communication With Other Providers and Other Discharge Plan Discharge Items Patient Disposition: Home - Self-Care Reason For Visit: URETEROLITHIASIS Discharge Diagnosis: Ureterolithiasis Activity: Resume your previous activity Non-emergency contact: Primary Care Provider and Urologist Call non-emergency contact if: you have any medication questions, your symptoms worsen and your pain is not controlled Follow-up/Referrals: Jadiel Mahmood MD [Physician] - Emily Echevarria, P.A. [Primary Care Provider] - Diet: Carb Consistent or DM2 Addtl Attending Provider Instructions: Follow up with urology as they have specified Pending Studies at Discharge: No Stand-Alone Forms: My [employer], Smoking Cessation Medications and DC Order Prescriptions: New tamsulosin 0.4 mg Capsule 0.4 mg PO HS Qty: 30 RF: 0 ketorolac 10 mg tablet 10 mg PO Q8H PRN (Reason: pain) 5 Days Qty: 30 RF: 0 Continued metformin 500 mg Tablet 1,000 mg PO BID RF: 0 atorvastatin [Lipitor] 20 mg Tablet 20 mg PO MOWEFR@2099 RF: 0 albuterol sulfate [Ventolin HFA] 90 mcg/actuation Hfa Aerosol Inhaler 2 puff INHALATION Q6H PRN (Reason: Shortness Of Breath Or Wheezing) RF: 0 losartan [Cozaar] 100 mg Tablet 100 mg PO MOWEFR@2099 RF: 0 cholecalciferol (vitamin D3) [Vitamin D3] 125 mcg (5,000 unit) Tablet 125 mcg PO HS RF: 0 potassium chloride 20 mEq Tablet Extended Release 20 meq PO HS RF: 0 Discharge Orders: Discharge Order (Routine); Ordered 04/09/20 Ordered By: Carolyn Liu Admission Data Admit Date/Time: 04/08/20 13:14 Attending Provider: Carolyn Liu Admit Provider: Gonzales Barrera Primary Care Provider: Emily Echevarria Other Providers: Gonzales Barrera ; Jadiel Mahmood Other Interventions: Discharge Summary Assessment (RN) Last Done: 04/09/20 11:52 Coding Level of Care Code D/C Day Management >30 mins Diagnoses Ureterolithiasis N20.1 Renal colic on right side N23 Hydronephrosis N13.30 Hydronephrosis type: unspecified Hyperlipidemia E78.5 Hypertension I10 Type 2 diabetes mellitus E11.9 Vitamin D deficiency E55.9
[2020-04-09] MEDS ORDERED: TAMSULOSIN HCL 0.4 MG CAP PO SCH (21:00)
== END 2020-04-09 13:49 | disposition home or self-care (01) ==
LOC: 3W 09:37 → ED 09:37 → MERGE 09:37 → SUATTDRO 13:14 → 3W 13:56